=== PATIENT | male | born 1945 | race Caucasian/White ===

== ENCOUNTER 2022-07-23 13:11 | Emergency (ER) | payer MEDICARE ==
[2022-07-23 13:20] VITALS: BP 167/66
--- NOTE | 2022-07-23 13:51 | ED Physician Documentation ---
History of Present Illness - Stated complaint Stated Complaint: BACK PX - Chief complaint Chief Complaint: Back Pain - Additonal information Additional information: 76-year-old male was referred to the emergency department for evaluation of acute thoracic back pain. He was at his physical therapy appointment today. He has been going to physical therapy now for about 6 weeks for lower back pain. While the physical therapist was examining his back he pressed along the thoracic spine and there was a point at which the patient had significant severe pain. This lasted for about 20 minutes before subsiding. The physical therapist made the recommendation that he come to the ER. Patient does have a history of cervical vertebrae fusion. C3-C7. Patient has no saddle anesthesia, loss of bowel or bladder function. He is ambulatory w ithout assistance. He is not in pain at this time. Per his he does have a history of neuropathy for which she takes pregabalin. Review of Systems Constitutional: denies: Fever, Chills Eyes: reports: Reviewed and negative Nose: reports: Reviewed and negative Throat: reports: Reviewed and negative Cardiac: reports: Reviewed and negative Respiratory: reports: Reviewed and negative GI: reports: Reviewed and negative Skin: denies: Rash, Lesions Musculoskeletal: reports: Back pain. denies: Extremity pain, Joint pain, Joint swelling, Pain with weight bearing Neurologic: denies: Generalized weakness, Focal weakness, Numbness PD PAST MEDICAL HISTORY - Allergies Allergies/Adverse Reactions: Allergies Allergy/AdvReac Type Severity Reaction Status Date / Time Penicillins Allergy Rash Verified 07/23/22 13:16 Sulfa (Sulfonamide Allergy Rash Verified 07/23/22 13:16 Antibiotics) PD ED PE EXPANDED - General General: Alert, No acute distress - Back Back: No: Vertebral tenderness (I am unable to elicit any vertebral tenderness of the thoracic or lower lumbar spine. No step-off crepitus or deformity. Full forward flexion of the lumbar spine. Normal gait. Motor strength is 5 of 5), Soft tissue tenderness, Limited ROM - Derm Derm: Normal color, Warm and dry. No: Rash - Extremities Extremities: Normal. No: Deformity, Tenderness - Neuro Neuro: Alert and Oriented X 3, CNII-XII intact - GCS Eye Opening: Spontaneous Motor: Obeys Commands Verbal: Oriented Total: 15 Results - Vitals Vitals: Vital Signs - 24 hr 07/23/22 13:16 Temperature 36.5 C Heart Rate 58 L Respiratory 16 Rate Blood Pressure 167/66 H O2 Saturation 98 Oxygen O2 Source Room air - Rads (name of study) lumbar ct Radiology: Final report received (Significant multilevel degenerative changes) thoracic CT Radiology: Final report received (Multilevel bridging anterior osteophytes system with diffusely opacified skeletal hyperostosis DISH. No visualized fracture) PD MEDICAL DECISION MAKING - ED course Complexity details: reviewed results, considered differential, d/w patient, d/w family ED course: This is a very well-appearing 76-year-old male that presents emergency department for evaluation of acute thoracic back pain that was induced during physical therapy when the therapist was examining the back. The symptoms lasted for about 20 minutes before subsiding and the patient presents here as the therapist recommended ER evaluation. On my exam I am unable to elicit any midline thoracic or lower lumbar tenderness. With the exception of age there are no red flags. He has full forward flexion range of motion of the spine and a normal gait. I discussed with the patient and his that I suspected that he may have had a brief muscle spasm that has subsided however Family is concerned that the symptoms could be due to osteopenia and fracture therefore given the advanced age we will proceed with CT imaging of the thoracic and lumbar spine. 1525: Subsequent thoracic and lumbar spine imaging is completed. No acute fractures are noted. Multilevel degenerative changes seen of the lumbar spine. DISH syndrome associate with thoracic spine is also reviewed. I discussed these findings with the patient and his at the bedside. They will continue chronic back pain management through physical therapy and their primary care provider. Emergent return precautions were discussed for sudden weakness, paresthesias and saddle anesthesia. Departure - Departure Disposition: 01 Home, Self Care Clinical Impression: DISH (diffuse idiopathic skeletal hyperostosis), DDD (degenerative disc disease), lumbar Condition: Stable Record reviewed to determine appropriate education?: Yes Comments: Ameya you are seen today in the emergency department because while you are at physical therapy today the physical therapist was examining your back and touched a rather sensitive area in your thoracic spine that increased your pain for about 20 to 30 minutes. You presented to the emergency department with concerns that you could have spinal fractures. By the time you presented here you were mostly pain-free and had a very reassuring back exam. However we did do CT imaging of the thoracic and lumbar spines. There are no fracture seen. The lower lumbar spine has diffuse degenerative changes as we often see with age. The upper thoracic spine does show Diffuse Idiopathic Skeletal Hyperostosis (DISH) This is a bony hardening of ligaments in areas where they attach to your spine. Also known as Forestier's disease, this condition might not cause symptoms or require treatment. If it does cause symptoms, the most common are mild to moderate pain and stiffness in your upper back. I encourage you to continue to follow closely with your primary care doctor as well as physical therapy for longer-term management of your back pain. Should you develop any fevers, have sudden numbness or loss of sensation in your genital area, lose control of your bowel or bladder function then please return immediately to the ER for a second evaluation. You can continue to take your other routinely prescribed medications
--- NOTE | 2022-07-23 14:55 | CT Report ---
PROCEDURE: THORACIC SPINE WO INDICATIONS: acute pain with PT today TECHNIQUE: Noncontrast 3 mm thick sections acquired through the region of interest in the thoracic spine. Sagit joann and coronal reformats were then constructed. For radiation dose reduction, the following was used : automated exposure control, adjustment of mA and/or kV according to patient size. COMPARISON: CT lumbar spine 07/23/2022 FINDINGS: Image quality: Excellent. Bones: There is partially visualized lower cervical fusion. Multilevel bridging anterior osteophytes are present throughout the thoracic spine. Multilevel degenerative disc space narrowing is also pres ent. No acute vertebral body compression fractures. No suspicious sclerotic or lytic bony lesions. Central spinal canal is of normal overall caliber. Soft tissues: No paravertebral masses or hematomas. Visualized posteromedial lungs appear clear. IMPRESSION: Multilevel bridging anterior osteophytes system with diffusely opacified skeletal hyperostosis (DISH) No visualized fracture.. Reviewed by: Keily Martinez MD on 07/23/2022 2:54 PM PDT Approved by: Keily Martinez MD on 07/23/2022 2:54 PM PDT Station ID: [id number]
--- NOTE | 2022-07-23 14:58 | CT Report ---
PROCEDURE: LUMBAR SPINE WO INDICATIONS: lumbar pain X 6 weeks TECHNIQUE: Noncontrast 3 mm thick sections acquired from the T12 level to the sacrum. Sagittal and coronal refo rmats were constructed. For radiation dose reduction, the following was used: automated exposure co ntrol, adjustment of mA and/or kV according to patient size. COMPARISON: None. FINDINGS: Image quality: Excellent. Bones: There is normal bony alignment. No acute vertebral body compression fractures. No suspiciou s lytic or blastic bony lesions. Central spinal caliber is of normal overall caliber. No pars defec ts. Multilevel moderate to severe disc space narrowing with vacuum disc phenomenon are present most sever e at L1-2 as well as L5-S1. Prominent multilevel anterior osteophytes are present with the most promi nent bridging osteophytes at T12-L1. Multilevel disc bulges as well as spinal stenosis and foraminal narrowing are present. Spinal stenosis is considered severe at L2-3, L3-4, L4-5. Foraminal narrowing is considered most severe from L2-3 through L5-S1. Multilevel facet arthropathy is present. Soft tissues: No retroperitoneal masses or hematomas. Visualized aorta is normal in caliber. IMPRESSION: Significant multilevel degenerative changes as above. Reviewed by: Keily Martinez MD on 07/23/2022 2:56 PM PDT Approved by: Keily Martinez MD on 07/23/2022 2:56 PM PDT Station ID: [id number]
== END 2022-07-23 15:45 | disposition home or self-care (01) ==
LOC: ED 13:11
DX: M48.16 Ankylosing hyperostosis [Forestier], lumbar region (principal); M51.36 Other intervertebral disc degeneration, lumbar region
CPT/HCPCS: 99282; 99284

== ENCOUNTER 2023-05-30 16:35 | Emergency (ER) | payer MEDICARE ==
--- NOTE | 2023-05-30 17:07 | ED Physician Documentation ---
History of Present Illness - Stated complaint Stated Complaint: SHOULDER PX - Chief complaint Chief Complaint: Back Pain - History obtained from History obtained from: Patient - History of Present Illness Timing: How many days ago (2) Pain level max: 9 Pain level now: 8 - Additonal information Additional information: Patient is a 77-year-old male who presents to the emergency department with 2 days of left-sided mid back pain at approximately T8/T9. No swelling. No heavy lifting. No numbness or tingling. He states that he feels like he cannot get comfortable at night. No difficulty breathing. No cough. No congestion. He does use marijuana daily. No nausea or vomiting. No abdominal pain. No head ache. No diarrhea or constipation. No neck pain. No shortness of breath. He does have an appointment with a neurosurgeon for his lumbar spine. Has had several cervical neck surgeries in the past. Review of Systems Constitutional: denies: Fever, Chills GI: denies: Vomiting, Diarrhea : denies: Dysuria, Frequency, Hesitancy, Incontinent, Hematuria Skin: denies: Rash Neurologic: denies: Focal weakness, Numbness, Confused, Headache PD PAST MEDICAL HISTORY - Past Medical History Past Medical History: Yes Cardiovascular: High cholesterol Endocrine/Autoimmune: Type 2 diabetes - Past Surgical History Past Surgical History: Yes - Present Medications Home Medications: Ambulatory Orders Medication Instructions Recorded Confirmed DULoxetine [Cymbalta] 60 mg PO DAILY 05/30/23 05/30/23 HYDROcod/ACETAM 5/325 [Hernandez 5/325] 1 - 2 ea PO Q6H PRN #14 tablet 05/30/23 Pregabalin [Lyrica] 150 mg PO DAILY 05/30/23 05/30/23 Simvastatin [Zocor] 20 mg PO DAILY 05/30/23 05/30/23 metFORMIN [Glucophage] 500 mg PO DAILY 05/30/23 05/30/23 - Allergies Allergies/Adverse Reactions: Allergies Allergy/AdvReac Type Severity Reaction Status Date / Time Penicillins Allergy Rash Verified 05/30/23 16:57 Sulfa (Sulfonamide Allergy Rash Verified 05/30/23 16:57 Antibiotics) - Living Situation Living Situation: reports: With family Living Arrangement: reports: At home - Social History Does the pt have substance abuse?: No - Family History Family history: reports: Non contributory PD ED PE NORMAL - Vitals Vital signs reviewed: Yes - General General: Alert and oriented X 3, No acute distress, Well developed/nourished - HEENT HEENT: PERRL, Ears normal, Moist mucous membranes, Pharynx benign - Neck Neck: Supple, no meningeal sign, No bony TTP - Cardiac Cardiac: RRR, Strong equal pulses - Respiratory Respiratory: No respiratory distress, Clear bilaterally - Abdomen Abdomen: Soft, Non tender, Non distended - Back Back: No CVA TTP, No spinal TTP - Derm Derm: Warm and dry - Extremities Extremities: No edema, No calf tenderness / cord - Neuro Neuro: Alert and oriented X 3 - Psych Psych: Normal mood, Normal affect Results - Vitals Vitals: Vital Signs - 24 hr 05/30/23 05/30/23 05/30/23 16:46 18:34 19:11 Temperature 36.5 C Heart Rate 89 57 L 60 Respiratory 18 14 14 Rate Blood Pressure 182/87 H 225/77 H 188/86 H O2 Saturation 98 96 96 05/30/23 05/30/23 19:36 19:56 Temperature Heart Rate 52 L 67 Respiratory 16 20 Rate Blood Pressure 195/93 H 182/71 H O2 Saturation 99 97 Oxygen O2 Source Room air - EKG (time done) 1655 EKG releavant findings:: EKG personally interpreted by author of this note. Relevant findings are: Rate: Rate (enter#) Rhythm: NSR Intervals: LBBB Compare to prior EKG: Other (Old EKG unavailable, but patient states has a known left bundle branch block.) - Labs Labs: Laboratory Tests 05/30/23 05/30/23 05/30/23 17:16 17:16 17:16 WBC 6.3 RBC 5.00 Hgb 14.2 Hct 42.3 MCV 84.6 MCH 28.4 MCHC 33.6 RDW 13.0 Plt Count 223 MPV 10.7 Neut # (Auto) 3.2 Lymph # (Auto) 2.3 [place] # (Auto) 0.5 Eos # (Auto) 0.2 Baso # (Auto) 0.1 Absolute Nucleated RBC 0.00 Nucleated RBC % 0.0 Sodium 138 Potassium 4.3 Chloride 105 Carbon Dioxide 25 Anion Gap 8.0 BUN 26 H Creatinine 1.2 Estimated GFR (MDRD) 59 L Glucose 105 H Calcium 10.1 Phosphorus 2.7 L Magnesium 1.9 Total Bilirubin 0.5 AST 24 ALT 27 Alkaline Phosphatase 74 Troponin I High Sens 8.1 Total Protein 7.9 Albumin 4.5 Globulin 3.4 Albumin/Globulin Ratio 1.3 Lipase 114 H - Rads (name of study) CT angio chest Relevant Findings:: Final report received, See rad report PD Medical Decision Making - ED course Complexity details: reviewed results, re-evaluated patient, considered differential, d/w patient ED course: Patient with back pain of unclear etiology. CT angio chest does not show any acute abnormality. Pain resolved in the emergency department. Patient is hypertensive, unclear if this is a chronic condition or not. Left bundle branch block is known. No significant lab abnormalities. Mild elevation of his lipase but not enough to be considered pancreatitis and does not have any abdominal pain or tenderness. No focal neurological deficits. No evidence of cauda equina. Patient counseled regarding signs and symptoms for which I believe and urgent re-evaluation would be necessary. Patient with good understanding of and agreement to plan and is comfortable going home at this time This document was made in part using voice recognition software. While efforts are made to proofread this document, sound alike and grammatical errors may occur. Departure - Departure Disposition: 01 Home, Self Care Clinical Impression: Back pain Qualifiers: Back pain location: thoracic back pain Chronicity: acute Back pain laterality: left Qualified Code(s): M54.6 - Pain in thoracic spine Hypertension Qualifiers: Hypertension type: unspecified Qualified Code(s): I10 - Essential (primary) hypertension Condition: Good Instructions: ED Neck Back Pain General Follow-Up: Oswald Garcia MD [Primary Care Provider] - Within 1 week Prescriptions: HYDROcod/ACETAM 5/325 [Hernandez 5/325] 1 - 2 ea PO Q6H PRN #14 tablet PRN Reason: Pain Comments: The cause of your symptoms is unclear today. Your laboratory testing does not s how any significant abnormalities. No signs of a heart attack. Your CT scan does not show evidence of a blood clot in the lungs or an aortic dissection. Your lipase is mildly elevated, but you do not have abdominal tenderness. We will trial you on a short course of pain medication and have you follow-up with your doctor for further care. Your blood pressure was also elevated today, this may be due to pain, but should be rechecked closely with your doctor. Your prescription was sent to [facility] in [place]. I am prescribing a short course of narcotic pain medication for you. These are p otentially dangerous and addictive medications that should be used carefully. These medications may constipate you. Take an [id number] stool softener (docusate) twice daily with plenty of water while taking these medications. If you go 24 hours without a bowel movement, take [id number] miralax, per package instructions. Do not drink or drive while taking these medications. If you received narcotic or sedating medications while in the emergency department, do not drive for 24 hours. Store this medication in a safe, secure place and out of reach of children. It is a violation of federal law to give or sell this medication to another person or to use in a manner other than prescribed. The ED will not refill narcotic prescriptions, including prescriptions lost or stolen. To dispose of unwanted medications: 1. [facility] at [address] in [place] has a medication drop box. They accept prescription medications (in pill form) Wednesday through Wednesday 9:00 a.m. to 5:00 p.m. 2. [facility] [employer] accepts prescription medications (in pill form only) for disposal year round. Call for more informat ion. 3. Contact the [facility] for the next [facility] sponsored prescription drug collection event. , [phone], or [phone]; Discharge Date/Time: 05/30/23 19:57
[2023-05-30] MEDS ORDERED: HYDROmorphone 1 MG/ML CARPUJECT IVP STA (17:23)
[2023-05-30 17:29] LABS: BASOPHILS # (AUTO) 0.1 10^3/uL (0.0-0.1); EOSINOPHILS # (AUTO) 0.2 10^3/uL (0.0-0.7); EOSINOPHILS % (AUTO) 3.4 %; HCT - HEMATOCRIT 42.3 % (42.0-52.0); HGB - HEMOGLOBIN 14.2 g/dL (14.0-18.0); LYMPHOCYTES # (AUTO) 2.3 10^3/uL (1.5-3.5); LYMPHOCYTES % (AUTO) 35.9 %; MEAN CORPUSCULAR HEMOGLOBIN 28.4 pg (27.0-31.0); MEAN CORPUSCULAR HGB CONC 33.6 g/dL (32.0-36.0); MEAN CORPUSCULAR VOLUME 84.6 fL (80.0-94.0); MEAN PLATELET VOLUME 10.7 fL (7.4-11.4); MONOCYTES # (AUTO) 0.5 10^3/uL (0.0-1.0); MONOCYTES % (AUTO) 8.6 %; NEUTROPHILS # (AUTO) 3.2 10^3/uL (1.5-6.6); NEUTROPHILS % (AUTO) 50.8 %; PLT - PLATELET COUNT 223 10^3/uL (130-450); WHITE BLOOD COUNT 6.3 x10^3/uL (4.8-10.8)
[2023-05-30] MEDS ORDERED: iohexoL-300 100 ML VIAL ONE (17:39)
[2023-05-30 17:44] LABS: ALBUMIN 4.5 g/dL (3.2-5.5); ALBUMIN/GLOBULIN RATIO 1.3 (1.0-2.2); BILIRUBIN,TOTAL 0.5 mg/dL (0.2-1.0); CALCIUM 10.1 mg/dL (8.5-10.3); CREATININE 1.2 mg/dL (0.6-1.3); MAGNESIUM 1.9 mg/dL (1.7-2.3); PHOSPHORUS 2.7 mg/dL (3.7-7.2); POTASSIUM 4.3 mmol/L (3.5-4.5); TOTAL PROTEIN 7.9 g/dL (6.4-8.9)
--- NOTE | 2023-05-30 17:45 | XRAY Report ---
PROCEDURE: Chest 1 View X-Ray INDICATIONS: Chest Pain TECHNIQUE: One view of the chest was acquired. COMPARISON: Correlation is made with thoracic spine CT, 07/23/2022 FINDINGS: Surgical changes and devices: None. Lungs and pleura: No pleural effusions or pneumothorax. Lungs are clear. Mediastinum: Mediastinal contours appear normal. Heart size is normal. Bones and chest wall: No suspicious bony lesions. Age-appropriate degenerative changes are seen. O verlying soft tissues appear unremarkable. IMPRESSION: Portable chest within normal limits for age. Reviewed by: Jose D Gleason MD on 05/30/2023 4:44 PM LAWANDA Approved by: Jose D Gleason MD on 05/30/2023 4:44 PM LAWANDA Station ID: [id number]
[2023-05-30] MEDS ORDERED: iohexoL-300 100 ML VIAL IVP ONE (18:26)
--- NOTE | 2023-05-30 18:50 | CT Report ---
PROCEDURE: ANGIO CHEST W/WO INDICATIONS: L back/chest pain CONTRAST: Omni 300 80ml TECHNIQUE: After the administration of intravenous contrast, 2 mm axial images were acquired from the pulmonary apices to the posterior costophrenic angles during the arterial phase. In addition, 1 mm lung kernel and 5 mm soft tissue kernel reconstructions were performed. 3-dimensional coronal oblique maximum int ensity projection (MIP) reformats, 8 mm axial MIP, and 5 mm coronal and sagittal MPR reformats were t hen performed through the thorax. For radiation dose reduction, the following was used: automated exp osure control, adjustment of mA and/or kV according to patient size. COMPARISON: Correlation is made with the accompanying chest x-ray. [facility]. FINDINGS: Image quality: There is artifact associated with the metallic hardware. Large vessels: No filling defects within the opacified pulmonary arteries, accounting for motion and contrast timing. No evidence of acute aortic syndrome or aortic aneurysm. Lungs and pleura: No consolidation. No pleural effusions. No pneumothorax. No suspicious pulmonary n odules which require follow up. Mediastinum: Heart size is normal. No pericardial effusion. No large vessel abnormality. No mediastin al adenopathy by size criteria. Chest wall and lower neck: Thyroid is unremarkable. No axillary or supraclavicular adenopathy by size . Remote right posterior rib fractures can be seen. Lower cervical spine postoperative change is part ially seen. Age-appropriate degenerative changes are seen. Bones: No aggressive osseous abnormality. Upper Abdomen: Simple appearing bilateral renal cysts can be seen. The visualized portions of the upp er abdominal structures are otherwise within normal limits. IMPRESSION: Negative for pulmonary embolism. Clear lungs. Additional findings: Lower cervical spine postoperative change Remote right posterior rib fractures Simple appearing bilateral renal cysts Reviewed by: Jose D Gleason MD on 05/30/2023 5:49 PM LAWANDA Approved by: Jose D Gleason MD on 05/30/2023 5:49 PM LAWANDA Station ID: [id number]
[2023-05-30] MEDS ORDERED: oxyCODONE 5 MG TABLET PO STA (19:08)
[2023-05-30] MEDS ORDERED: hydrALAZINE INJ 20 MG/ML VIAL IVP STA (19:11)
[2023-05-30 20:04] VITALS: BP 182/71
== END 2023-05-30 19:57 | disposition home or self-care (01) ==
LOC: ED 16:35
DX: M54.6 Pain in thoracic spine (principal); I10 Essential (primary) hypertension
CPT/HCPCS: 36415; 71045; 71275; 80053; 83690; 83735; 84100; 84484; 85025; 93005; 96374; 96375; 99284; A9270; J1170; Q9967

== ENCOUNTER 2023-12-09 16:04 | Outpatient (CLI) | payer MEDICARE ==
[2023-12-09 20:03] LABS: ESTIMATED AVERAGE GLUCOSE 134 mg/dL (70-100); HEMOGLOBIN A1c% 6.3 % (4.27-6.07)
== END 2023-12-09 16:05 | disposition home or self-care (01) ==
LOC: LAB 16:04
PROVIDERS: ATTEND Internal Medicine
DX: R73.03 Prediabetes (principal)
CPT/HCPCS: 36415; 83036